=== PATIENT | male | born 1940 | race Caucasian/White ===

== ENCOUNTER 2017-08-21 12:33 | Emergency (ER) | payer OTHER ==
[~2017-08-21] VITALS: Ht 177.8 cm; Wt 79.8 kg
[~2017-08-21 12:33] MED LIST: ASPI81TA28 PO; ATOR-26 PO; OMEG10007 PO
[2017-08-21 12:36] VITALS: TEMP 36.8; Ht 177.8 cm; Wt 79.8 kg
--- NOTE | 2017-08-21 12:56 | EMERGENCY ROOM VISIT NOTE ---
History Report prepared by Elin: Pete Moreno Under the Supervision of: Dr. Davonte Ghotra M.D. First contact with patient: 12:40 Chief Complaint: RECTAL BLEEDING Stated Complaint: BLOOD IN STOOL History of Present Illness The patient is a 76 year old white male with a past medical history of colon cancer with resection, rectal polyps, and tinnitus, who presents to the Emergency Room with complaints of intermittent rectal bleeding that the patient first noticed this morning, a few hours prior to arrival. The patient states that when he had his bowel movement this morning he only passed a small amount of formed stool, along with some liquid. He noticed that the water in the toilet bowl was pink following this BM. He states that he did not have diarrhea , but that it was just liquid. He denies any abdominal or chest pain aside from some bloating and heart burn. He is on a Baby Aspirin daily. Source of History: patient Onset: A few hours SERVICES CLERK Position: other (Rectal ) Quality: other (Red toilet bowl water) Timing: intermittent Associated Symptoms: No chest pain, No abdominal pain, No diarrhea Review of Systems See HPI for pertinent positives and negatives. A total of ten systems were reviewed and were otherwise negative. Past Medical & Surgical Medical Problems: (1) Tinnitus Hx of Colon cancer and rectal polyps. Family History Patient reports no known family medical history. Social History Smoking Status: Current Every Day Smoker Marital Status: Occupation Status: retired Current/Historical Medications Scheduled Aspirin (Aspirin Ec), 81 MG PO DAILY Atorvastatin (Lipitor), 40 MG PO DAILY Fish Oil ([place]-3), 3 CAP PO DAILY Allergies Coded Allergies: No Known Allergies (Unverified , 08/21/17) Physical Exam Vital Signs Date Time Temp Pulse Resp B/P (MAP) Pulse Ox O2 Delivery O2 Flow Rate FiO2 08/21/17 15:13 82 20 135/78 96 08/21/17 14:30 75 20 156/84 96 Room Air 08/21/17 13:39 80 08/21/17 13:36 72 20 149/86 96 Room Air 08/21/17 13:14 95 Room Air 08/21/17 12:36 36.8 91 17 138/87 93 Room Air Physical Exam GENERAL: Awake, alert, well-appearing, NAD HENT: Normocephalic, atraumatic. EYES: Normal conjunctiva. Sclera non-icteric. NECK: Supple. No nuchal rigidity. FROM. RESPIRATORY: CTAB, no rhonchi, wheezing, crackles CARDIAC: RRR, no MRG ABDOMEN: Soft, there is a midline incisional scar, no TTP anywhere over abdomen. BS+ MSK: No chest wall TTP, no LE edema NEURO: GCS 15, CN 2-12 intact, moves all 4s on command SKIN: No rash or jaundice noted. RECTAL: rectal exam reveals no hemorrhoids, no fissures, dark colored stool present. Heme negative. Medical Decision & Procedures ER Provider Diagnostic Interpretation: Radiology results as stated below per my review and radiologist interpretation: PA CHEST RADIOGRAPH AND UPRIGHT AND SUPINE AP RADIOGRAPHS OF THE ABDOMEN CLINICAL HISTORY: EVALUATE GI BLEED/OBSTRUCTION SERIES COMPARISON STUDY: No previous studies for comparison. FINDINGS: Lung volumes are normal. Lungs are clear. No pneumothorax or pleural effusion is noted. There is no evidence for pulmonary edema. Cardiac size is normal. Mediastinal contours are normal. There is no free air. The bowel gas pattern is normal. A moderate amount of stool within the colon is noted. There is no significant stool within the rectum. Pelvic calcifications likely reflect phleboliths. There is a possible 3 mm left renal calculus. IMPRESSION: 1. No free air or evidence of bowel obstruction. 2. No acute cardiopulmonary findings. 3. Possible 3 mm left renal calculus. Electronically signed by: Yaya Lockwood M.D. 08/21/2017 1:57 PM Dictated Date/Time: 08/21/2017 1:55 PM Laboratory Results 08/21/17 13:26 Red Blood Count 4.99, Mean Corpuscular Volume 91.8, Mean Corpuscular Hemoglobin 31.3, Mean Corpuscular Hemoglobin Concent 34.1, Mean Platelet Volume 9.5, Neutrophils (%) (Auto) 64.6, Lymphocytes (%) (Auto) 28.7, Monocytes (%) (Auto) 6.0, Eosinophils (%) (Auto) 0.3, Basophils (%) (Auto) 0.3, Neutrophils # (Auto) 4.53, Lymphocytes # (Auto) 2.01, Monocytes # (Auto) 0.42, Eosinophils # (Auto) 0.02, Basophils # (Auto) 0.02 08/21/17 13:26 Test 08/21/17 13:26 White Blood Count 7.01 K/uL (4.8-10.8) Red Blood Count 4.99 M/uL (4.7-6.1) Hemoglobin 15.6 g/dL (14.0-18.0) Hematocrit 45.8 % (42-52) Mean Corpuscular Volume 91.8 fL (80-100) Mean Corpuscular Hemoglobin 31.3 pg (25-34) Mean Corpuscular Hemoglobin Concent 34.1 g/dl (32-36) Platelet Count 162 K/uL (130-400) Mean Platelet Volume 9.5 fL (7.4-10.4) Neutrophils (%) (Auto) 64.6 % Lymphocytes (%) (Auto) 28.7 % Monocytes (%) (Auto) 6.0 % Eosinophils (%) (Auto) 0.3 % Basophils (%) (Auto) 0.3 % Neutrophils # (Auto) 4.53 K/uL (1.4-6.5) Lymphocytes # (Auto) 2.01 K/uL (1.2-3.4) Monocytes # (Auto) 0.42 K/uL (0.11-0.59) Eosinophils # (Auto) 0.02 K/uL (0-0.5) Basophils # (Auto) 0.02 K/uL (0-0.2) RDW Standard Deviation 48.0 fL (36.4-46.3) RDW Coefficient of Variation 14.3 % (11.5-14.5) Immature Granulocyte % (Auto) 0.1 % Immature Granulocyte # (Auto) 0.01 K/uL (0.00-0.02) Prothrombin Time 10.3 SECONDS (9.0-12.0) Prothromb Time International Ratio 1.0 (0.9-1.1) Activated Partial Thromboplast Time 26.4 SECONDS (21.0-31.0) Partial Thromboplastin Ratio 1.0 Anion Gap 7.0 mmol/L (3-11) Est Creatinine Clear Calc Drug Dose 81.4 ml/min Estimated GFR () 100.8 Estimated GFR (Non- 86.9 BUN/Creatinine Ratio 12.4 (10-20) Calcium Level 8.8 mg/dl (8.5-10.1) Total Bilirubin 0.9 mg/dl (0.2-1) Direct Bilirubin 0.3 mg/dl (0-0.2) Aspartate Amino Transf (AST/SGOT) 22 U/L (15-37) Alanine Aminotransferase (ALT/SGPT) 27 U/L (12-78) Alkaline Phosphatase 59 U/L (45-117) Total Protein 6.7 gm/dl (6.4-8.2) Albumin 3.4 gm/dl (3.4-5.0) Lipase 124 U/L (73-393) Ethyl Alcohol mg/dL < 3.0 mg/dl (0-3) Laboratory results reviewed by me ECG Per My Interpretation Indication: other (Rectal Bleed) Rate (beats per minute): 73 Rhythm: normal sinus Findings: other (LAD, Normal intervals) ED Course 1247: The patient was evaluated in room C7. A complete history and physical exam was performed. 1442: I reevaluated the patient. Discussed results and discharge instructions: he verbalized understanding and agreement. The patient is ready for discharge. Medical Decision The patient is a 76 year old white male with a past medical history of colon cancer, rectal polyps, and tinnitus, who presents to the Emergency Room with complaints of intermittent rectal bleeding that the patient first noticed this morning, a few hours prior to arrival. Differential diagnosis: Etiologies such as diverticulosis, AVM, coagulopathy, colitis, inflammatory bowel disease, malignancy, Angely-Knight tear, esophagitis, peptic ulcer disease , variceal bleed, gastritis, epistaxis, fissure, hemorrhoids, as well as others were entertained. Patient was seen and evaluated at the bedside. Patient was complaining of some pink colored fluid in the toilet bowl. Patient denies any dizziness or lightheadedness. Patient has no abdominal pain, nausea, vomiting. Patient has had a recent bowel movement without issue. Patient only takes a baby aspirin. Of note the patient does drink alcohol daily. Patient also is a chronic smoker. Patient did have a prior partial colectomy for a cancerous lesion that he says the colectomy resolved. Patient's rectal exam showed dark stool that was heme-negative no fissures or hemorrhoids noted. Patient did have blood work completed. Patient's platelet count and H&H are normal. Coags are also within normal limits. Patient an EKG does not show any anemia. Given that the patient has Hemoccult negative stool on exam sure why that the toilet bowl is pink cover this may not be related to rectal bleeding. It may have even been transient bleeding. Even if so the patient has very stable vital signs stable blood counts. I believe he can follow-up as an outpatient. Patient was told of these findings. Patient was counseled on both alcohol and smoking cessation. Patient was given strict follow-up, discharge, and return precautions. All questions were answered. Patient was deemed suitable for outpatient follow-up at this time. Patient agreed with the plan of care and was safely discharged home. Medication Reconcilliation Current Medication List: was personally reviewed by me Blood Pressure Screening Patient's blood pressure: Elevated blood pressure Blood pressure disposition: Referred to PCP Impression Primary Impression: Encounter for smoking cessation counseling Additional Impressions: Encounter for alcohol cessation counseling Rectal bleed Scribe Attestation The scribe's documentation has been prepared under my direction and personally reviewed by me in its entirety. I confirm that the note above accurately reflects all work, treatment, procedures, and medical decision making performed by me. Departure Information Dispostion Home / Self-Care Referrals No Doctor, Assigned (PCP) Patient Instructions Alcohol Abuse - [facility], ED Smoking Cessation, My [facility] Additional Instructions Please return to the emergency department if you have worsening or recurrent symptoms not amenable to at-home treatment. Please call for a follow-up appointment with her primary care physician. Please take your medications as prescribed. If you have other concerns and/or complaints please feel free to also call your primary care physician's office or return the ED for further evaluation, management, and treatment. Consider both alcohol and smoking cessation. Please follow-up with your primary care physician for repeat blood work evaluation and treatment. Please return if you do have large amounts of rectal bleeding, blood clots, become very lightheaded, dizzy, or pass out. Take your medications as prescribed. You have been examined and treated today on an emergency basis only. This is not a substitute for, or an effort to provide, complete comprehensive medical care. It is impossible to recognize and treat all injuries or illnesses in a single emergency department visit. It is therefore important that you follow up closely with [facility], your PCP, and/or your specialist(s). Call as soon as possible for an appointment. Thank you for your time and consideration. I look forward to speaking with you again soon. Please don't hesitate to call us if you have any questions. Problem Qualifiers
[2017-08-21 13:14] VITALS: O2SAT 95
[2017-08-21 13:45] LABS: BASO % 0.3 %; BASO ABS # 0.02 K/uL (0-0.2); EOS % 0.3 %; EOS ABS # 0.02 K/uL (0-0.5); HEMATOCRIT 45.8 % (42-52); HEMOGLOBIN 15.6 g/dL (14.0-18.0); IG# 0.01 K/uL (0.00-0.02); LYMPH % 28.7 %; LYMPH ABS # 2.01 K/uL (1.2-3.4); MEAN CELL VOLUME 91.8 fL (80-100); MEAN CORPUSCULAR HEMOGLOBIN 31.3 pg (25-34); MEAN CORPUSCULAR HGB CONC 34.1 g/dl (32-36); MEAN PLATELET VOLUME 9.5 fL (7.4-10.4); MONO ABS # 0.42 K/uL (0.11-0.59); NEUT % 64.6 %; NEUT ABS # 4.53 K/uL (1.4-6.5); PLATELET COUNT 162 K/uL (130-400); RED CELL DISTRIBUTION WIDTH CV 14.3 % (11.5-14.5); WHITE BLOOD COUNT 7.01 K/uL (4.8-10.8)
[2017-08-21 13:54] LABS: PTT PATIENT 26.4 SECONDS (21.0-31.0)
--- NOTE | 2017-08-21 13:59 | DIAGNOSTIC IMAGING REPORT ---
PA CHEST RADIOGRAPH AND UPRIGHT AND SUPINE AP RADIOGRAPHS OF THE ABDOMEN CLINICAL HISTORY: EVALUATE GI BLEED/OBSTRUCTION SERIES COMPARISON STUDY: No previous studies for comparison. FINDINGS: Lung volumes are normal. Lungs are clear. No pneumothorax or pleural effusion is noted. There is no evidence for pulmonary edema. Cardiac size is normal. Mediastinal contours are normal. There is no free air. The bowel gas pattern is normal. A moderate amount of stool within the colon is noted. There is no significant stool within the rectum. Pelvic calcifications likely reflect phleboliths. There is a possible 3 mm left renal calculus. IMPRESSION: 1. No free air or evidence of bowel obstruction. 2. No acute cardiopulmonary findings. 3. Possible 3 mm left renal calculus. Electronically signed by: Yaya Lockwood M.D. 08/21/2017 1:57 PM Dictated Date/Time: 08/21/2017 1:55 PM
[2017-08-21 14:04] LABS: ALBUMIN 3.4 gm/dl (3.4-5.0); CALCIUM 8.8 mg/dl (8.5-10.1); CREATININE 0.81 mg/dl (0.60-1.40); POTASSIUM 3.6 mmol/L (3.5-5.1)
[2017-08-21 14:07] LABS: TOTAL PROTEIN 6.7 gm/dl (6.4-8.2)
[2017-08-21 15:13] VITALS: BP 135/78; PULSE 82; O2SAT 96
== END 2017-08-21 15:14 | disposition home or self-care (01) ==
LOC: C.EDB 12:34 → C.EDC 15:14
DX: K62.5 Hemorrhage of anus and rectum (principal); F17.200 Nicotine dependence, unspecified, uncomplicated; Z79.82 Long term (current) use of aspirin